=== PATIENT | female | born 1955 | race Hispanic/Latino ===

== ENCOUNTER 2021-04-29 09:00 | Observation (INO) | payer OTHER ==
[2021-04-26 11:29] LABS: APPEARANCE,URINE Clear (CLEAR); BILIRUBIN,URINE Negative (NEGATIVE); COLOR,URINE Yellow (YELLOW); GLUCOSE, URINE (UA) Negative (NEGATIVE); KETONES,URINE Negative (NEGATIVE); LEUKOCYTE ESTERASE ,URINE Small (NEGATIVE); NITRATE,URINE Negative (NEGATIVE); OCCULT BLOOD,URINE Negative (NEGATIVE); PH,URINE 6.5 (5.0-8.0); PROTEIN,URINE Negative (NEGATIVE)
[2021-04-26 11:36] LABS: CREATININE 0.8 mg/dL (0.5-1.5); POTASSIUM 4.3 mmol/L (3.5-5.1)
[2021-04-26 11:41] LABS: BACTERIA,URINE Rare /HPF (None Seen); RBC,URINE 0-1 /HPF (0-1); SQUAMOUS EPITHELIAL CELL,UR 0-2 /HPF (0-2); WBC,URINE 0-1 /HPF (0-1)
[2021-04-26 11:44] LABS: INR 1.05 (0.85-1.15); PROTHROMBIN TIME 11.4 SEC (9.6-11.6)
[2021-04-26 13:07] VITALS: BP 188/77
[2021-04-29] VITALS (20 sets, daily range): BP systolic 132–166; BP diastolic 68–109
[~2021-04-29] VITALS: Ht 162.6 cm; Wt 91.4 kg
[~2021-04-29 09:00] MED LIST: FLUT16H NASAL; LEVO5TAB29 PO
[2021-04-29] MEDS ORDERED: CEFAZOLIN SODIUM 1 GM VIAL ONE ×3 (09:07→19:11)
[2021-04-29] MEDS ORDERED: LACTATED RINGERS 1000ML 1,000 ML IV ONE (09:07)
[2021-04-29] MEDS: CEFAZOLIN SODIUM 1 GM VIAL IVP ONE ×2 (09:48→14:05)
[2021-04-29] MEDS ORDERED: VANCOMYCIN 1G/250ML KIT 250 ML IV ONE (12:09)
[2021-04-29] MEDS: TRANEXAMIC ACID 1000MG/10ML ONE ×2 (12:39→13:50)
[2021-04-29] MEDS ORDERED: TRANEXAMIC ACID 1000MG/10ML ONE (13:38)
[2021-04-29] MEDS ORDERED: 0.9%NACL 1000ML 1,000 ML IV SCH (16:30)
[2021-04-29] MEDS ORDERED: CALCIUM CARB 500MG PO PRN (16:30)
[2021-04-29] MEDS ORDERED: KCL 20 MEQ ERTAB PO PRN (16:30)
[2021-04-29] MEDS ORDERED: LIDOCAINE HCL-MPF 1% 2ML VIAL IV PRN (16:30)
[2021-04-29] MEDS ORDERED: FERROUS FUMARATE 324 MG TABLET PO PRN (16:30)
[2021-04-29] MEDS ORDERED: OXYCODONE HCL 5 MG TAB PO PRN ×2 (16:30)
[2021-04-29] MEDS ORDERED: POTASSIUM CHLORIDE 20MEQ/100ML 100 ML IV PRN (16:30)
[2021-04-29] MEDS ORDERED: DiphenhydrAMINE HCL 50 MG/ML VIAL IVP PRN (16:30)
[2021-04-29] MEDS ORDERED: TEMAZEPAM 15 MG CAPSULE PO PRN (16:30)
[2021-04-29] MEDS ORDERED: POTASSIUM CHLORIDE 10% ELIXIR 20 MEQ/15 ML UDCUP PO PRN (16:30)
[2021-04-29] MEDS ORDERED: ONDANSETRON 4MG INJ IVP PRN (16:30)
[2021-04-29] MEDS ORDERED: MEPERIDINE-PF 25 MG/ML SYG ONE ×2 (16:55→17:05)
[2021-04-29] MEDS ORDERED: ASPIRIN 81 MG EC TAB ONE (19:11)
[2021-04-29] MEDS ORDERED: FAMOTIDINE 20MG TAB ONE (19:12)
[2021-04-29] MEDS ORDERED: PREGABALIN 25 MG CAP ONE (19:13)
[2021-04-29] MEDS: CEFAZOLIN SODIUM 1 GM VIAL IVP SCH (19:32)
[2021-04-29] MEDS: ASPIRIN 81 MG EC TAB PO SCH (19:32)
[2021-04-29] MEDS: PREGABALIN 25 MG CAP PO SCH (19:33)
[2021-04-29] MEDS: ACETAMINOPHEN 500 MG TABLET PO SCH (19:33)
[2021-04-29] MEDS: FAMOTIDINE 20MG TAB PO SCH (19:33)
[2021-04-30] MEDS: ACETAMINOPHEN 500 MG TABLET PO SCH ×3 (01:16→17:09)
[2021-04-30 03:42] LABS: HEMATOCRIT 43.5 % (36-48); MEAN CORPUSCULAR HEMOGLOBIN 28.6 pg (27.0-33.0); MEAN CORPUSCULAR HGB CONC 32.4 g/dL (32.0-36.0); MEAN CORPUSCULAR VOLUME 88.2 fL (79-99); RED BLOOD CELL COUNT(AUTO) 4.93 MIL/uL (4.00-5.50); RED CELL DISTRIBUTION WIDTH 12.4 % (11.0-15.5); WHITE BLOOD COUNT (AUTO) 10.6 K/uL (4.8-10.8)
[2021-04-30 03:57] LABS: CREATININE 0.7 mg/dL (0.5-1.5)
[2021-04-30 04:03] VITALS: BP 145/73
[2021-04-30] MEDS: CEFAZOLIN SODIUM 1 GM VIAL IVP SCH (05:45)
[2021-04-30 07:55] VITALS: BP 165/75
[2021-04-30] MEDS: FLUTICASONE PROPIONATE 50MCG/SPRAY 16 GM BOTTLE NS SCH (09:00)
[2021-04-30] MEDS: PREGABALIN 25 MG CAP PO SCH ×2 (09:00→20:42)
[2021-04-30 10:20] VITALS: BP 146/81
[2021-04-30] MEDS: ASPIRIN 81 MG EC TAB PO SCH ×2 (10:46→20:42)
[2021-04-30] MEDS: FAMOTIDINE 20MG TAB PO SCH ×2 (10:46→20:42)
[2021-04-30] MEDS: POLYETHYLENE GLYCOL 3350 17 GM POWD.PACK PO SCH (10:49)
[2021-04-30] MEDS: TRAMADOL HCL 50 MG TABLET PO PRN (12:27)
[2021-04-30] MEDS: KETOROLAC 15MG/ML VIAL (15MG/ML) IV PRN (14:26)
[2021-04-30 15:28] VITALS: BP 142/79
[2021-04-30 19:00] VITALS: BP 141/77
[2021-05-01] VITALS: BP 130/63
[2021-05-01] MEDS: ACETAMINOPHEN 500 MG TABLET PO SCH ×3 (00:28→15:59)
[2021-05-01 04:00] VITALS: BP 137/68
[2021-05-01 07:51] VITALS: BP 157/60
[2021-05-01] MEDS: PREGABALIN 25 MG CAP PO SCH ×2 (08:17→21:00)
[2021-05-01] MEDS: ASPIRIN 81 MG EC TAB PO SCH ×2 (08:17→21:00)
[2021-05-01] MEDS: POLYETHYLENE GLYCOL 3350 17 GM POWD.PACK PO SCH (08:19)
[2021-05-01] MEDS: FAMOTIDINE 20MG TAB PO SCH ×2 (08:19→21:00)
[2021-05-01] MEDS: FLUTICASONE PROPIONATE 50MCG/SPRAY 16 GM BOTTLE NS SCH (08:20)
[2021-05-01] MEDS: TRAMADOL HCL 50 MG TABLET PO PRN ×2 (08:30→15:58)
[2021-05-01] MEDS: KETOROLAC 15MG/ML VIAL (15MG/ML) IV PRN (09:23)
[2021-05-01 11:26] VITALS: BP 136/73
[2021-05-01 15:31] VITALS: BP 137/65
[2021-05-01 19:00] VITALS: BP 155/75
[2021-05-02] VITALS: BP 132/65
[2021-05-02] MEDS: ACETAMINOPHEN 500 MG TABLET PO SCH ×2 (00:25→09:24)
[2021-05-02 04:00] VITALS: BP 154/69
[2021-05-02 07:38] VITALS: BP 136/74
[2021-05-02] MEDS: FLUTICASONE PROPIONATE 50MCG/SPRAY 16 GM BOTTLE NS SCH (09:00)
[2021-05-02] MEDS: FAMOTIDINE 20MG TAB PO SCH (09:23)
[2021-05-02] MEDS: POLYETHYLENE GLYCOL 3350 17 GM POWD.PACK PO SCH (09:23)
[2021-05-02] MEDS: ASPIRIN 81 MG EC TAB PO SCH (09:23)
[2021-05-02] MEDS: PREGABALIN 25 MG CAP PO SCH (09:23)
[2021-05-02] MEDS: TRAMADOL HCL 50 MG TABLET PO PRN ×2 (09:32→15:00)
[2021-05-02 10:38] VITALS: BP 130/63
[2021-05-02] MEDS ORDERED: TRAM50TA4 PO (13:05)
[2021-05-02] MEDS ORDERED: AEC81 PO (13:05)
[2021-05-02 15:27] VITALS: BP 121/73
[2021-05-02] MEDS ORDERED: BISACODYL 10 MG SUPP.RECT RC PRN (16:30)
== END 2021-05-02 17:21 ==
LOC: DAH 09:00 → DAHIP 09:01 → 4BH 17:44
PROVIDERS: ADMIT Orthopaedic Surgery; ATTEND Orthopaedic Surgery
DX: M17.12 Unilateral primary osteoarthritis, left knee (principal); Z20.822 Contact with and (suspected) exposure to COVID-19; M25.562 Pain in left knee; Z90.710 Acquired absence of both cervix and uterus; Z90.49 Acquired absence of other specified parts of digestive tract; Z79.82 Long term (current) use of aspirin; Z90.711 Acquired absence of uterus with remaining cervical stump; Z79.899 Other long term (current) drug therapy; Z98.890 Other specified postprocedural states
CPT/HCPCS: 27447; 36415 ×2; 80048 ×2; 81001; 85027; 85610; 87088; 87635; 87641; 96374; 96375; 96376; 97039 ×6; 97116 ×6; 97161; 97530 ×6; A4215; A4221; A4222; A4223 ×2; A4600; A4649 ×4; A4657; A4663; A4930 ×2; A9272; C1776; C9803; G0378 ×70; J0690 ×4; J1885 ×2; J2175 ×2; J3370; J3490 ×2; J7120 ×2

== ENCOUNTER 2022-09-08 07:26 | Observation (INO) | payer OTHER, MEDICARE ==
[2022-09-05 11:22] LABS: APPEARANCE,URINE CLEAR (CLEAR); BILIRUBIN,URINE NEGATIVE (NEGATIVE); COLOR,URINE YELLOW (YELLOW); GLUCOSE, URINE (UA) NEGATIVE (NEGATIVE); KETONES,URINE 60 mg/dL (NEGATIVE); LEUKOCYTE ESTERASE ,URINE 75 Leu/uL (NEGATIVE); NITRATE,URINE NEGATIVE (NEGATIVE); OCCULT BLOOD,URINE NEGATIVE (NEGATIVE); PH,URINE 5.5 (5.0-8.0); PROTEIN,URINE 10 mg/dL (NEGATIVE); UROBILINOGEN,URINE 0.2 mg/dL (0.2-1.0)
[2022-09-05 11:28] LABS: BACTERIA,URINE RARE /HPF (None Seen); MUCUS,URINE FEW LPF (None Seen); SQUAMOUS EPITHELIAL CELL,UR FEW /HPF (0-2)
[2022-09-05 12:05] LABS: BASOPHILS % (AUTO) 0.4 % (0.0-5.0); EOSINOPHILS % (AUTO) 1.8 % (0.0-8.0); HEMATOCRIT 47.7 % (36-48); LYMPHOCYTES % (AUTO) 27.1 % (21.0-51.0); MEAN CORPUSCULAR HEMOGLOBIN 29.2 pg (27.0-33.0); MEAN CORPUSCULAR HGB CONC 32.9 g/dL (32.0-36.0); MEAN CORPUSCULAR VOLUME 88.8 fL (79-99); MONOCYTES % (AUTO) 6.8 % (3.0-13.0); NEUTROPHILS % (AUTO) 63.7 % (40.0-77.0); PLATELET COUNT (AUTO) 285 K/uL (130-400); RED BLOOD CELL COUNT(AUTO) 5.37 MIL/uL (4.00-5.50); RED CELL DISTRIBUTION WIDTH 12.9 % (11.0-15.5); WHITE BLOOD COUNT (AUTO) 8.1 K/uL (4.8-10.8)
[2022-09-05 12:09] VITALS: BP 179/86
[2022-09-05 12:17] LABS: ALBUMIN 4.2 g/dL (3.5-5.0); CARBON DIOXIDE 24 mmol/L (21-32); CHLORIDE 104 mmol/L (101-111); CREATININE 0.8 mg/dL (0.5-1.5); GLOMERULAR FILTR. RATE CALC 76 mL/min (>60); GLUCOSE,RANDOM 95 mg/dL (70-105); INR 1.02 (0.85-1.15); POTASSIUM 3.8 mmol/L (3.5-5.1); PROTHROMBIN TIME 11.1 SEC (9.6-11.6); SODIUM SERUM 139 mmol/L (136-145); UREA NITROGEN, BLOOD 13 mg/dL (7-18)
[2022-09-05 12:19] LABS: PARTIAL THROMBOPLASTIN TIME 29.9 SEC (26.3-35.5)
[2022-09-05 12:21] LABS: CRP QUANTITATIVE < 2.00 mg/L (0.00-9.0)
[~2022-09-08] VITALS: Ht 160 cm; Wt 88.0 kg
[2022-09-08] VITALS (29 sets, daily range): BP systolic 125–179; BP diastolic 60–92
[~2022-09-08 07:26] MED LIST changes: +ACET-66 PO; -FLUT16H NASAL; +IBUP-2070 PO
[2022-09-08] MEDS ORDERED: LACTATED RINGERS 1000ML 1,000 ML IV ONE (07:42)
[2022-09-08] MEDS ORDERED: BUPIVACAINE/PF 0.5% 30ML VIAL ONE (07:45)
[2022-09-08] MEDS ORDERED: KETOROLAC 30MG VIAL (30MG/ML) ONE (07:45)
[2022-09-08] MEDS ORDERED: TRANEXAMIC ACID 1000MG/10ML ONE ×2 (07:45→09:20)
[2022-09-08] MEDS: CEFAZOLIN SODIUM 2 GM VIAL IVPB SCH ×2 (07:59→10:23)
[2022-09-08] MEDS ORDERED: ROPIVACAINE 0.5% 5MG/ML 30ML IJ ONE (08:02)
[2022-09-08] MEDS ORDERED: FAMOTIDINE 20MG VIAL IV ONE (09:49)
[2022-09-08] MEDS ORDERED: HYDROMORPHONE 1 MG INJ ONE (09:49)
[2022-09-08] MEDS ORDERED: LIDOCAINE PF 100MG/5ML (2%) SYRINGE 5ML ONE (09:56)
[2022-09-08] MEDS ORDERED: MIDAZOLAM HCL 1 MG/ML 2ML VIAL ONE (09:56)
[2022-09-08] MEDS ORDERED: GLYCOPYRROLATE 1 MG/5 ML SYRINGE ONE (09:56)
[2022-09-08] MEDS ORDERED: PROPOFOL 10 MG/ML 20ML VIAL IV ONE (09:56)
[2022-09-08] MEDS ORDERED: ONDANSETRON 4MG INJ ONE (09:57)
[2022-09-08] MEDS ORDERED: FENTANYL CITRATE PF 50 MCG/1 ML 5ML AMP IV ONE (09:57)
[2022-09-08] MEDS ORDERED: ROCURONIUM 10MG/1ML SYR 10 MG/ML ML ONE (10:26)
[2022-09-08] MEDS ORDERED: NEOSTIGMINE 5MG/5ML SYR IV ONE (12:24)
[2022-09-08] MEDS ORDERED: CALCIUM CARB 500MG PO PRN (13:00)
[2022-09-08] MEDS ORDERED: POTASSIUM CHLORIDE 10% ELIXIR 20 MEQ/15 ML UDCUP PO PRN (13:00)
[2022-09-08] MEDS ORDERED: KCL 20 MEQ ERTAB PO PRN (13:00)
[2022-09-08] MEDS ORDERED: LIDOCAINE HCL-MPF 1% 2ML VIAL IV PRN (13:00)
[2022-09-08] MEDS ORDERED: POTASSIUM CHLORIDE 20MEQ/100ML 100 ML IV PRN (13:00)
[2022-09-08] MEDS ORDERED: TRAMADOL HCL 50 MG TABLET PO PRN (13:00)
[2022-09-08] MEDS ORDERED: DiphenhydrAMINE HCL 50 MG/ML VIAL IVP PRN (13:00)
[2022-09-08] MEDS ORDERED: CYCLOBENZAPRINE HCL 10 MG TABLET PO PRN (13:00)
[2022-09-08] MEDS ORDERED: KETOROLAC 15MG/ML VIAL (15MG/ML) IV PRN (13:00)
[2022-09-08] MEDS ORDERED: FERROUS FUMARATE 324 MG TABLET PO PRN (13:00)
[2022-09-08] MEDS ORDERED: ONDANSETRON 4MG INJ IVP PRN (13:00)
[2022-09-08] MEDS ORDERED: FENTANYL CITRATE PF 50 MCG/1 ML 2ML VIAL ONE (13:55)
[2022-09-08] MEDS: KETOROLAC 15MG/ML VIAL (15MG/ML) IV SCH ×2 (14:04→22:38)
[2022-09-08] MEDS: GABAPENTIN 100 MG CAPSULE PO SCH ×2 (17:05→21:00)
[2022-09-08] MEDS: HYDROCODONE/ACETAMINOPHEN 5/325 MG TAB PO PRN (17:08)
[2022-09-08] MEDS: CEFAZOLIN SODIUM 1 GM VIAL IVPB SCH (18:53)
[2022-09-08] MEDS: DOCUSATE SODIUM 100 MG CAP PO SCH (21:48)
[2022-09-08] MEDS: 0.9%NACL 1000ML 1,000 ML IV SCH (23:00)
[2022-09-09] MEDS: CEFAZOLIN SODIUM 1 GM VIAL IVPB SCH (02:59)
[2022-09-09 03:59] VITALS: BP 146/57
[2022-09-09 05:03] LABS: HEMATOCRIT 40.3 % (36-48); MEAN CORPUSCULAR HGB CONC 32.5 g/dL (32.0-36.0); MEAN CORPUSCULAR VOLUME 89.2 fL (79-99); RED BLOOD CELL COUNT(AUTO) 4.52 MIL/uL (4.00-5.50); RED CELL DISTRIBUTION WIDTH 12.7 % (11.0-15.5); WHITE BLOOD COUNT (AUTO) 8.3 K/uL (4.8-10.8)
[2022-09-09 05:12] LABS: CREATININE 0.9 mg/dL (0.5-1.5); POTASSIUM 3.7 mmol/L (3.5-5.1)
[2022-09-09] MEDS: KETOROLAC 15MG/ML VIAL (15MG/ML) IV SCH (06:48)
[2022-09-09 08:00] VITALS: BP 140/72
[2022-09-09] MEDS ORDERED: LORATADINE 10 MG TABLET ONE (08:16)
[2022-09-09] MEDS: HYDROCODONE/ACETAMINOPHEN 5/325 MG TAB PO PRN ×3 (08:37→21:48)
[2022-09-09] MEDS ORDERED: ASPIRIN 325MG EC TAB PO ONE (08:49)
[2022-09-09] MEDS: LORATADINE/PSEUDOEPHED 5/120 MG 1 EACH TAB.SR.12H PO SCH ×2 (09:00→21:00)
[2022-09-09] MEDS: GABAPENTIN 100 MG CAPSULE PO SCH ×3 (09:00→21:00)
[2022-09-09] MEDS: ASPIRIN 325MG TAB PO SCH (09:00)
[2022-09-09] MEDS: 0.9%NACL 1000ML 1,000 ML IV SCH (09:00)
[2022-09-09] MEDS: DOCUSATE SODIUM 100 MG CAP PO SCH ×2 (09:29→21:46)
[2022-09-09] MEDS: POLYETHYLENE GLYCOL 3350 17 GM POWD.PACK PO SCH (09:29)
[2022-09-09 11:58] VITALS: BP 135/58
[2022-09-09 20:00] VITALS: BP 148/70
[2022-09-10] VITALS: BP 135/61
[2022-09-10 04:00] VITALS: BP 137/65
[2022-09-10] MEDS: HYDROCODONE/ACETAMINOPHEN 5/325 MG TAB PO PRN ×2 (05:35→15:07)
[2022-09-10 07:56] VITALS: BP 136/65
[2022-09-10] MEDS: LORATADINE/PSEUDOEPHED 5/120 MG 1 EACH TAB.SR.12H PO SCH ×2 (09:00→09:31)
[2022-09-10] MEDS: GABAPENTIN 100 MG CAPSULE PO SCH ×2 (09:31→13:47)
[2022-09-10] MEDS: DOCUSATE SODIUM 100 MG CAP PO SCH (09:31)
[2022-09-10] MEDS: POLYETHYLENE GLYCOL 3350 17 GM POWD.PACK PO SCH (09:31)
[2022-09-10] MEDS: ASPIRIN 325MG TAB PO SCH (09:42)
[2022-09-10] MEDS ORDERED: ASPI-1026 PO (14:37)
[2022-09-10] MEDS ORDERED: GABA100C PO (14:37)
[2022-09-10] MEDS ORDERED: CYCL-309 PO (14:37)
[2022-09-10] MEDS ORDERED: HYDR-4060 PO (14:37)
[2022-09-10] MEDS ORDERED: DOCU-116 PO (14:38)
[2022-09-11] MEDS ORDERED: BISACODYL 10 MG SUPP.RECT RC PRN (13:00)
== END 2022-09-10 18:00 ==
LOC: DAH 07:26 → DAHIP 07:27 → DAH 07:27 → 4DH 14:35
PROVIDERS: ADMIT Student in an Organized Health Care Education/Training Program; ATTEND Student in an Organized Health Care Education/Training Program
DX: M17.11 Unilateral primary osteoarthritis, right knee (principal); Z20.822 Contact with and (suspected) exposure to COVID-19; M25.561 Pain in right knee; R26.89 Other abnormalities of gait and mobility; J30.9 Allergic rhinitis, unspecified; J98.11 Atelectasis; E66.9 Obesity, unspecified; N39.0 Urinary tract infection, site not specified; E78.2 Mixed hyperlipidemia; Z79.899 Other long term (current) drug therapy; Z98.890 Other specified postprocedural states; Z90.710 Acquired absence of both cervix and uterus; Z96.652 Presence of left artificial knee joint; Z68.34 Body mass index [BMI] 34.0-34.9, adult
CPT/HCPCS: 82040; 80048 ×2; 85025; 85610; 85730; 87088; 84134; 86140; 87426; 81001; 36415 ×2; 93005; 87641; 27447; 96365; 96375; 76942; 64447; 73560; 97161; 97039 ×5; 97530 ×4; 96376 ×2; 96366; 85027; 97116 ×4; G0378 ×49; A4663; A4215 ×2; J7120; J3490 ×5; J3010 ×2; J0690 ×3; J1170; J2710; J2001; J2250; J2704; J2405 ×2; J1885 ×6; J2795; C1713; G0168; A4649 ×4; C1776; A6255; A5120; A4223; A4222; A4221